=== PATIENT | male | born 1970 | race Caucasian/White ===

== ENCOUNTER 2023-11-30 05:59 | Day surgery (SDC) | payer BC ==
[2023-11-30] VITALS (13 sets, daily range): BP systolic 103–130; BP diastolic 82–93
[~2023-11-30] VITALS: Ht 174 cm; Wt 95.2 kg
[~2023-11-30 05:59] MED LIST: AMOCLA875 PO; HYDACE5 PO
[2023-11-30] MEDS ORDERED: CeFAZolin Sodium 2,000 MG in NS 100 ML IV SCH (06:25)
[2023-11-30] MEDS ORDERED: Lactated Ringer's 1,000 ML IV SCH (06:25)
[2023-11-30] MEDS ORDERED: Bupivacaine 0.5% Inj 10 ML Vial ONE (07:08)
[2023-11-30] MEDS ORDERED: Midazolam HCl 1MG / ML 2ML Vial IV ONE (07:15)
[2023-11-30] MEDS ORDERED: FentaNYL Citrate 50 MCG/ML 2 ML Injection ONE ×2 (07:30→08:37)
[2023-11-30] MEDS ORDERED: propofoL 20 ML IV ONE (07:30)
[2023-11-30] MEDS ORDERED: SuccINYLCHOLINE Chloride 100 MG/5 ML 5MLSYR ONE (07:34)
[2023-11-30] MEDS ORDERED: Dexamethasone Sod Phos 10 MG/ML 1ML VIAL ONE (07:57)
[2023-11-30] MEDS ORDERED: Rocuronium Bromide 10 MG/ML 5ML Injection IV ONE (07:57)
[2023-11-30] MEDS ORDERED: Sugammadex Sodium 200 MG/2ML SDV (100 MG/ML) ONE (07:57)
[2023-11-30] MEDS ORDERED: Ondansetron HCl 2 MG / ML 2ML Vial ONE (07:57)
[2023-11-30] MEDS ORDERED: HYDROcodone 5-APAP 325 TAB PO PRN (08:35)
--- NOTE | 2023-11-30 10:23 | NUR ---
Patient up to Ambulate independently. Gait steady. Discharge instructions reviewed with patient. Patient verbalizes understanding. Copy given to patient to take home, [facility]. Patient States Post-Procedure ride home has been arranged. Discharged via wheelchair to private car for ride home. PT TOLERATING PO. REPORTS PAIN TOLERABLE, DENIES N/V. REPORTS READY TO GO HOME. PT DRESSING C/D/I.
== END 2023-11-30 10:23 | disposition home or self-care (01) ==
LOC: ORSCMMR 05:59 → ORD 07:30 → ORSCMMR 07:30
PROVIDERS: Surgery
PROC: 0WQF0ZZ Repair Abdominal Wall, Open Approach (ICD-10-PCS; principal; 2023-11-30 07:30)
DX: K42.9 Umbilical hernia without obstruction or gangrene (principal); G47.33 Obstructive sleep apnea (adult) (pediatric)
CPT/HCPCS: A9270; J0330; J0690; J1100; J2250; J2405; J2704; J3010; J7120